=== PATIENT | female | born 1930 | race Caucasian/White ===

== ENCOUNTER 2017-10-16 15:19 | Outpatient (CLI) | payer MEDICARE ==
[~2017-10-16 15:19] MED LIST: AMLO10TA2 PO; AMLO5TAB2 PO; ASPI81TA31 PO; ATOR20TA PO; CALC-1115 PO; TRIA1TAB4 PO; VIT1CAPS6 PO; VITAMIN D3 PO
--- NOTE | 2017-10-17 11:03 | NUR ---
XRAY REPORT WAS FAXED TO THE PATIENT'S
== END 2017-10-16 23:59 | disposition home or self-care (01) ==
LOC: XRAY 15:19
PROVIDERS: ATTEND Internal Medicine
DX: Z01.818 Encounter for other preprocedural examination (principal); M47.896 Other spondylosis, lumbar region; M41.26 Other idiopathic scoliosis, lumbar region; I70.0 Atherosclerosis of aorta; M25.842 Other specified joint disorders, left hand; I10 Essential (primary) hypertension
CPT/HCPCS: 71020